=== PATIENT | female | born 1945 | race Caucasian/White ===

== ENCOUNTER → 2023-05-19 12:32 | Outpatient (POV) | payer MEDICARE, MEDICAID, SELFPAY ==
--- NOTE | 2023-05-19 12:59 | A.OFFVIS_ITS ---
HPI Data of Consult Patient: new to practice Consult date: 05/19/23 Requesting Physician: Phyllis Hayes APRN Primary Care Provider: Alyssa Vargas APRN Consult Narrative History of present illness: Ms. Barrera is a 77 year old female who presents today as a new patient. She is a referral from the [facility] location. She was being treated for degenerative disc disease of lumbar spine with lumbar radiculopathy symptoms and sacroiliitis. Patient rates her pain today a 7 out of 10. Patient denies any new trauma or injury. Patient does describe her pain as an aching, throbbing sensation that is in and around her right hip with some numbness and tingling. She states that this pain has been going on for several months and progressively worsened over time. Patient states that it does affect her ability perform activities of daily living such as cooking and cleaning. Patient states that it does seem very aggravated with prolonged positioning such as sitting or standing. Patient states that it does affect her quality of life and that she was really hoping to get another injection. Her last time at the clinic there in [place] they had submitted for an SI injection however was denied. Patient has not had this injection prior. Patient was started on gabapentin while she was there in [place] however she was unable to tolerate this medicine due to increased grogginess and did actually have a fall due to this medication. Patient does use [id number] Tylenol and ibuprofen along with heat and ice and topicals however only has minimal relief. Patient has been going to physical therapy and is still currently going twice a week however she has not had any additional relief. Patient denies any previous back surgery. Patient does states she has recently had MRI and x-ray imaging at [facility]. Patient states that this is the only place she can do this imaging because she has a coil in her brain. Patient is interested in any help we may be able to provide. Patient was prescribed gabapentin and [place] in the past. Her Jesus has been reviewed and is appropriate. CC: Phyllis Hayes APRN [facility] Disclaimer: The information contained in this section may have been updated after the patient was seen, as this information can be updated by other users. Medical History (Updated 05/19/23 @ 14:22 by Che Whitley RN) Brain aneurysm CAD (coronary artery disease) Depression HLD (hyperlipidemia) HTN (hypertension) Family History (Updated 05/19/23 @ 14:21 by Che Whitley RN) Other Unknown family medical history Social History (Updated 05/19/23 @ 14:23 by Che Whitley RN) Smoking Status: Unknown if ever smoked alcohol intake: never current occupational status: other Travel in the last 8 weeks: None Review of Systems Review of Systems Review of systems:: pertinent systems reviewed and negative unless documented below Review of systems (narrative): Review of Systems: General: No recent weight changes, no fever, no sleep disturbances Respiratory: No cough, no shortness of air, no recurring pulmonary infections Cardiovascular/peripheral vascular: No chest pain, no palpitations, no edema, no shortness of breath Gastrointestinal: No new onset incontinence, normal bowel movements reported Genitourinary: No new onset incontinence Musculoskeletal: Low back pain, right hip pain Psychiatric: [Normal mood/affect] Neurological: [Denies weakness in extremities], [denies balance issues] Meds Home Medications and Allergies Home Medications Medication Instructions Recorded Confirmed Type atorvastatin 80 mg tablet 80 mg PO DAILY Cholesterol 05/19/23 05/19/23 History citalopram 20 mg tablet 20 mg PO DAILY MOOD 05/19/23 05/19/23 History clopidogrel 75 mg tablet 75 mg PO DAILY Blood Thinner 05/19/23 05/19/23 History fluticasone fur. 100 mcg-umeclid 1 inh inhalation DIRECTED 05/19/23 05/19/23 History 62.5 mcg-vilant 25 mcg Breathing Problems inhalat.powder (Trelegy Ellipta) furosemide 20 mg tablet 20 mg PO DAILY Fluid 05/19/23 05/19/23 History ipratropium 20 mcg-albuterol 100 1 puff inhalation DIRECTED 05/19/23 05/19/23 History mcg/actuation mist for inhalation Breathing Problems (Combivent Respimat) losartan 50 mg tablet 50 mg PO DAILY BLOOD PRESSURE 05/19/23 05/19/23 History metoprolol succinate 25 mg 25 mg PO DAILY BLOOD PRESSURE 05/19/23 05/19/23 History tablet,extended release 24 hr mirtazapine 30 mg tablet 30 mg PO DIRECTED . 05/19/23 05/19/23 History montelukast 10 mg tablet 10 mg PO DIRECTED ALLERGIES 05/19/23 05/19/23 History omeprazole 20 mg capsule,delayed 20 mg PO DAILY GERD 05/19/23 05/19/23 History release New Prescriptions to Start Prescriptions: Allergies Allergy/AdvReac Type Severity Reaction Status Date / Time No Known Allergies Allergy Verified 05/19/23 14:29 Objective Narrative: Physical Exam: General: Alert and oriented x3, no acute distress, pleasant and cooperative Lungs: Respirations even and unlabored, symmetrical chest expansion Eyes: PERRL Musculoskeletal: Flexion and extension of lumbar [spine] somewhat guarded secondary to pain, [antalgic gait noted] extreme point tenderness along right SI with a positive right Carmelo's, Shantanu's, Gaenslen's, compression and distraction exam Neurological: Speech clear, no gross sensory deficit Additional findings Additional findings: [facility] MRI lumbar spine without contrast 01/05/2023 Findings: T12-L2: Normal L2-3: Broad-based disc bulge with posterior disc osteophyte causing moderate ventral canal flattening without significant neural compression. Inferior foraminal narrowing without intraforaminal L2 nerve root compression L3-4: Moderate disc space loss with posterior disc osteophyte. Left more than right disc osteophyte protrusion as well as left facet subluxation and facet arthropathy on imaging 19/7. Nerve root impingement but no compression as on sagittal image 13/4. No central stenosis. L4-5: Marked right greater than left loss of disc height, with reactive changes, more present on the right. A large right-sided osteophyte is seen on image 8/4 in the setting of the facet arthropathy and with apparent impingement/compression of the exiting intraforaminal right L4 nerve root as for example on image 7/4. There is also ventral lateral recess narrowing, right greater than left with minor displacement of right L5 nerve root on axial image 23/7. Minor right greater than left facet arthropathy L5-S1: Marked disc space narrowing with bilateral facet arthropathy and impingement but not compression on the exiting S1 nerve roots on image 27/7. Foraminal narrowing but no compression of the exiting intraforaminal L5 nerve root. Assessment and Plan *Assessment and plan (1) Low back pain: Status: Acute Qualifiers: Back pain laterality: bilateral Chronicity: chronic Sciatica laterality: sciatica of right side Sciatica presence: with sciatica Qualified Code(s): M54.41 - Lumbago with sciatica, right side; G89.29 - Other chronic pain Category: Medical Code(s): M54.50 - Low back pain, unspecified (2) Chronic pain syndrome: Status: Acute Category: Medical Code(s): G89.4 - Chronic pain syndrome (3) Sacroiliitis: Status: Acute Category: Medical Code(s): M46.1 - Sacroiliitis, not elsewhere classified Plan Patient is experiencing significant pain in her low back along her right hip. Patient had extreme point tenderness at her SI joint and a positive right Carmelo's, Shantanu's, Gaenslen's, compression and distraction exam during today's visit. I have discussed that with the patient that she may benefit from a right SI injection. Risk and benefits were discussed with patient and she would like to proceed forward with this plan of care. Patient has not ever had the SI injection in the past and cannot determine how much percentage improvement she will have from this injection. Patient has only had a lumbar epidural in the past that did provide 75 percent relief. I will order the patient a compounded cream. Patient will be scheduled for a right SI injection under fluoroscopy. Patient has tried and failed conservative therapy such as oral medication, heat and ice, topicals, current physical therapy and at home stretching exercise for longer than 6 weeks. Patient has been dealing with this pain for longer than 6 months. We will also reach out to [facility] and see about getting a copy of the patient's x-ray and lumbar MRI imaging. Patient has been instructed to contact the clinic with any concerns before the next appointment. Dr. Willis has reviewed this note and agrees with this plan of care. This note was dictated using voice recognition software and make contain errors or omissions.
[2023-05-19 13:07] VITALS: BP 130/59; PULSE 87; RESP 18; O2SAT 91; BMI 24.1
== END ==
LOC: SC.PAIN 12:38
PROVIDERS: PCP Nurse Practitioner Family; Visit Provider Nurse Practitioner Family
DX: M54.41 Lumbago with sciatica, right side (principal); G89.4 Chronic pain syndrome; M46.1 Sacroiliitis, not elsewhere classified
CPT/HCPCS: 99202; G0463

== ENCOUNTER 2023-06-14 13:15 | Day surgery (SDC) | payer MEDICARE, MEDICAID, SELFPAY ==
[2023-06-14 13:34] VITALS: BP 123/59; PULSE 79; RESP 18; TEMP 36.9; O2SAT 93; BMI 24.3
[2023-06-14] MEDS: LIDOCAINE 1% 5ML PF VIAL 5 ML (13:47)
[2023-06-14] MEDS: BUPIVACAINE 0.25% 10ML INJ 25 MG IJ (13:47)
[2023-06-14] MEDS: methylPREDNISolone ACETATE 80MG/ML VIAL 80 MG (13:47)
[2023-06-14 13:55] VITALS: BP 117/57; PULSE 83; RESP 18; O2SAT 93
--- NOTE | 2023-06-14 14:25 | EXP.PAIN.PRO ---
Procedure Date: 06/14/23 Time: 14:00 Anesthesiologist:: Royce Hampton CRNA Complications:: None Pre-procedure Diagnosis:: Right sacroiliitis Post-procedure Diagnosis:: Same. Indications for Procedure:: Patient is a very pleasant 78-year-old female comes our clinic today for right sacroiliac joint injection. Patient is wheelchair-bound as well as oxygen dependent. She complains of right low lumbar back pain. Upon examination she has extreme point tenderness over the right sacroiliac joint. She describes the pain is sharp, stabbing when standing. She rates her pain 8/10. Procedure Details:: Procedure: Right sacroliliac joint injection under fluoroscopy Informed consent was obtained and the risk and benefits of the procedure were explained to the patient.~ The patient was taken to the procedure room and noninvasive monitors were placed including noninvasive blood pressure cuff and pulse oximeter.~ The patient was placed prone on the procedure table.~ The~ right hip was cleansed using Betadine as a cleansing solution.~ C-arm fluorosocpy was used to view the right SI joint.~ The skin and subcutaneous tissues were anesthetized using Lidocaine 1.5% and a 25-gauge needle.~ After this, a 22-gauge spinal needle was inserted under fluoroscopic guidance into the inferior aspect of the right SI joint.~ Omnipaque dye was injected and a good spread was seen throughout the joint.~ After this, approximately 5 mL of bupivacaine 0.25% and Depo-Medrol 40 mg was incrementally injected into the sacroiliac joint.~ The patient tolerated the procedure well with no complications.~ The patient was observed in the Pain Clinic, then discharged home neurologically intact.~ Plan and Disposition:: Patient was discharged without incident.
== END 2023-06-14 13:55 | disposition home or self-care (01) ==
LOC: SC.PAINP 13:17
PROVIDERS: Visit Provider Nurse Anesthetist, Certified Registered
DX: M46.1 Sacroiliitis, not elsewhere classified (principal)
CPT/HCPCS: 27096; 77002; G0260; J1040

== ENCOUNTER 2023-07-07 12:48 | Outpatient (POV) | payer MEDICARE, MEDICAID, SELFPAY ==
[2023-07-07 12:51] VITALS: BP 127/83; PULSE 85; RESP 18; O2SAT 91; BMI 24.3
--- NOTE | 2023-07-07 14:05 | EXP.PAIN.SOA ---
[facility] Pain Management SOAP Note Subjective:: Patient is a pleasant 78-year-old female who presents today for follow-up of right SI injection on 06/14/2023. Today she rates her pain a 0 while sitting however when she gets up and starts moving around it will go to a 5 or 6 out of 10. Patient states that she had at least 95% relief following this injection lasting for approximately 1 week. Patient does state that it did slowly start to return to her baseline after that. She states during the initial time that it was working she was able to increase her activity and felt overall more functional. Patient does state today that it is still not at the severity of what it was initially and that she has been able to increase her activity and doing about 400 steps per day however it does interfere with her ability to perform activities of daily living such as cooking and cleaning. Patient states that she can only be standing for short periods of time before she has to stop and sit down. Patient does have to occasionally change positions due to the worsening pain. Patient does state it also takes it out of her anytime that she has to travel due to the worsening pain symptoms. Patient is interested in repeating her last injection. Patient does have a history of heart related issues with stents placed and cannot do NSAIDs on a regular basis. Patient does state that she will occasionally use 2 Tylenol and the low-dose ibuprofen as needed. Patient was prescribed compounded cream at her last office visit and states she did not notice significant relief. Her Jesus has been reviewed and is appropriate. Review of Systems: General: No recent weight changes, no fever, no sleep disturbances Respiratory: No cough, no shortness of air, no recurring pulmonary infections Cardiovascular/peripheral vascular: No chest pain, no palpitations, no edema, no shortness of breath Gastrointestinal: No new onset incontinence, normal bowel movements reported Genitourinary: No new onset incontinence Musculoskeletal: Low back pain: Right hip pain Psychiatric: [Normal mood/affect] Neurological: [Denies weakness in extremities], [denies balance issues] Objective:: Physical Exam: General: Alert and oriented x3, no acute distress, pleasant and cooperative Lungs: Respirations even and unlabored, symmetrical chest expansion Eyes: PERRL Musculoskeletal: Flexion and extension of lumbar [spine] somewhat guarded secondary to pain, [antalgic gait noted] point tenderness along right SI with positive right Carmelo's, Shantanu's, Gaenslen's, compression and distraction exam Neurological: Speech clear, no gross sensory deficit Assessment:: Degenerative disc disease of lumbar spine with lumbar radiculopathy symptoms, right sacroiliitis, right hip pain Plan:: Patient is experiencing significant pain in her low back and right hip with limited range of motion of her lumbar spine. Patient did have approximately 95% relief with her last SI injection. I have discussed with the patient that she may benefit from repeat injection. Risk and benefits were discussed with patient and she would like to proceed forward with this plan of care. I have also discussed with patient in future she may benefit from lumbar medial branch block for lumbar epidural if her symptoms start to cause radiating pain into her legs. We will follow-up with this at future visits. Patient has tried and failed conservative therapy such as oral medication, heat and ice, topicals, at home stretching exercise for longer than 6 weeks. Patient is on full-time continuous oxygen and cannot tolerate current physical therapy. We will submit to insurance for a right SI injection under fluoroscopy. Patient has been instructed to contact the clinic with any concerns before the next appointment. Dr. Willis has reviewed this note and agrees with this plan of care. This note was dictated using voice recognition software and make contain errors or omissions. [facility] Disclaimer: The information contained in this section may have been updated after the patient was seen, as this information can be updated by other users. Medical History Brain aneurysm Depression CAD (coronary artery disease) HLD (hyperlipidemia) HTN (hypertension) Family History Other Unknown family medical history Social History Smoking Status: Unknown if ever smoked alcohol intake: never current occupational status: other Travel in the last 8 weeks: None
== END 2023-07-07 23:59 ==
LOC: SC.PAIN 12:49
PROVIDERS: PCP Nurse Practitioner Family; Visit Provider Nurse Practitioner Family
DX: M51.16 Intervertebral disc disorders with radiculopathy, lumbar region (principal); M46.1 Sacroiliitis, not elsewhere classified; M25.551 Pain in right hip
CPT/HCPCS: 99212; G0463

== ENCOUNTER 2023-07-26 12:35 | Day surgery (SDC) | payer MEDICARE, MEDICAID, SELFPAY ==
[2023-07-26 13:03] VITALS: BP 113/57; PULSE 83; RESP 18; TEMP 36.2; O2SAT 91; BMI 24.3
[2023-07-26] MEDS: LIDOCAINE 1% 5ML PF VIAL 5 ML (13:08)
[2023-07-26] MEDS: methylPREDNISolone ACETATE 80MG/ML VIAL 80 MG (13:08)
[2023-07-26] MEDS: BUPIVACAINE 0.25% 10ML INJ 25 MG IJ (13:08)
[2023-07-26 13:11] VITALS: BP 140/57; PULSE 89; RESP 18; TEMP 36.8; O2SAT 98
--- NOTE | 2023-07-26 13:11 | EXP.PAIN.PRO ---
Procedure Date: 07/26/23 Time: 12:50 Anesthesiologist:: Royce Hampton CRNA Complications:: None Pre-procedure Diagnosis:: Right sacroiliitis Post-procedure Diagnosis:: Same Indications for Procedure:: Patient is a pleasant 78-year-old female comes to clinic today for right sacroiliac joint injection of cortisone. Patient reports 1 week of significant improvement terms of her overall right low lumbar back pain as well as right posterior hip pain after receiving her first sacroiliac joint injection on 06/14/2023. Patient reports of right low lumbar back pain as well as right buttock pain. She reports pain intensifies with sitting. Patient reports having difficulty transitioning from sitting to standing due to the right posterior hip pain. Procedure Details:: Procedure: Right sacroliliac joint injection under fluoroscopy Informed consent was obtained and the risk and benefits of the procedure were explained to the patient.~ The patient was taken to the procedure room and noninvasive monitors were placed including noninvasive blood pressure cuff and pulse oximeter.~ The patient was placed prone on the procedure table.~ The~ right hip was cleansed using Betadine as a cleansing solution.~ C-arm fluorosocpy was used to view the right SI joint.~ The skin and subcutaneous tissues were anesthetized using Lidocaine 1.5% and a 25-gauge needle.~ After this, a 22-gauge spinal needle was inserted under fluoroscopic guidance into the inferior aspect of the right SI joint.~ Omnipaque dye was injected and a good spread was seen throughout the joint.~ After this, approximately 5 mL of bupivacaine 0.25% and Depo-Medrol 40 mg was incrementally injected into the sacroiliac joint.~ The patient tolerated the procedure well with no complications.~ The patient was observed in the Pain Clinic, then discharged home neurologically intact.~ Plan and Disposition:: Patient was discharged without incident.
--- NOTE | 2023-07-26 13:54 | EXP.PAIN.PRO ---
Procedure Date: 07/26/23 Time: 13:15 Anesthesiologist:: Royce Hampton CRNA Complications:: None Pre-procedure Diagnosis:: Degenerative disc lumbar spine multilevels. Lumbar radiculopathy. Post-procedure Diagnosis:: Same. Indications for Procedure:: Patient is a 78-year-old female comes our clinic today for intrathecal pain pump interrogation and refill. However, upon talking with the patient she is interested in the pump being explanted. She is not satisfied with the pain relief. Also, patient is reporting multiple side effects such as low back pain. Swelling. Right knee pain. Patient currently being managed with morphine sulfate 5 mg/mL at a rate of 0.2500 mg/day. I explained to the patient the details of weaning the medication down prior to explant. Today we will decrease her by 20%. Her new rate will be 0.2 mg/day. She will return to the office in 2 weeks for a second decrease of 20%. We will add her to the schedule after that visit for surgical explant of the pump. Patient asked regarding other options in terms of the pump. I discussed at length bupivacaine versus narcotic. Patient reports she is not interested. I explained in detail the patient we will not write oral narcotics for her. Patient states she is allergic to oral narcotics anyway. I discussed surgical consultation for potential lumbar surgery. She is not interested. Procedure Details:: Details of the procedure explained to the patient. The patient's pump was interrogated. Patient currently being managed with morphine sulfate 5 mg/mL at 0.2500 mg/day. Will decrease the pump by 20%. The patient's new rate will be 0.200. Patient tolerated procedure without difficulty. There are no complications. Plan and Disposition:: Patient will return to the office in 2 weeks for another 20% decrease in the intrathecal pain pump rate. We will schedule her at that time for explant of the intrathecal pain pump.
--- NOTE | 2023-07-26 14:04 | EXP.PAIN.PRO ---
Procedure Date: 07/26/23 Time: 13:48 Anesthesiologist:: Royce Hampton CRNA Complications:: None Pre-procedure Diagnosis:: Degenerative disc lumbar spine multilevels. Lumbar radiculopathy. Post-procedure Diagnosis:: Same. Indications for Procedure:: Patient is a pleasant 78-year-old female comes our clinic
== END 2023-07-26 13:11 | disposition home or self-care (01) ==
PROVIDERS: PCP Nurse Practitioner Family; Visit Provider Nurse Anesthetist, Certified Registered
DX: M46.1 Sacroiliitis, not elsewhere classified (principal); M51.16 Intervertebral disc disorders with radiculopathy, lumbar region; Z97.8 Presence of other specified devices; Z45.1 Encounter for adjustment and management of infusion pump
CPT/HCPCS: 27096; 62368; G0260; J1010

== ENCOUNTER 2023-08-18 13:12 | Outpatient (POV) | payer MEDICARE, MEDICAID, SELFPAY ==
[2023-08-18 13:26] VITALS: BP 108/68; PULSE 84; RESP 16; O2SAT 93; BMI 24.3
--- NOTE | 2023-08-18 15:36 | EXP.PAIN.SOA ---
[facility] Pain Management SOAP Note Subjective:: Patient is a pleasant 78-year-old female who presents today for follow-up. Today she rates her pain a 2 of 10. P patient does state that she feels like her last SI injection has worked really well. She states that she got at least 80% improvement leading up until earlier this week. She states she was feeling much better and was doing things around the house and ended up overstretching and feeling a pull in her low back along the right side. Patient does state however that it is still not as severe as what it had been and right now it is still manageable. Patient does have a history of heart related issues with stents placed and cannot do NSAIDs on a regular basis. Patient does state that she will occasionally use 2 Tylenol and the low-dose ibuprofen as needed. Patient was prescribed compounded cream at her last office visit and states she did not notice significant relief. Patient is currently managed with intrathecal morphine 5 mg/mL with a daily dose of 0.2 mg/day. She denies any side effects from this medication. Her Jesus has been reviewed and is appropriate. Review of Systems: General: No recent weight changes, no fever, no sleep disturbances Respiratory: No cough, no shortness of air, no recurring pulmonary infections Cardiovascular/peripheral vascular: No chest pain, no palpitations, no edema, no shortness of breath Gastrointestinal: No new onset incontinence, normal bowel movements reported Genitourinary: No new onset incontinence Musculoskeletal: Low back pain: Right hip pain Psychiatric: [Normal mood/affect] Neurological: [Denies weakness in extremities], [denies balance issues] Objective:: Physical Exam: General: Alert and oriented x3, no acute distress, pleasant and cooperative Lungs: Respirations even and unlabored, symmetrical chest expansion Eyes: PERRL Musculoskeletal: Flexion and extension of lumbar [spine] somewhat guarded secondary to pain, [antalgic gait noted] Neurological: Speech clear, no gross sensory deficit Assessment:: Degenerative disc disease of lumbar spine with lumbar radiculopathy symptoms, right-sided sacroiliitis Plan:: Patient is doing well overall currently between her pump and SI injections. We will follow-up with her in 2 months for reevaluation of symptoms and plan of care. Patient has been instructed to contact the clinic with any concerns before the next appointment. Dr. Willis has reviewed this note and agrees with this plan of care. This note was dictated using voice recognition software and make contain errors or omissions. -- It Is medically necessary for this patient to continue to have their intrathecal pump refilled at regular intervals. This patient had an intrathecal pain pump implanted after meeting criteria of chronic intractable pain for greater than 3 months and failing conservative treatments. Patient has committed and been compliant to the treatment plan and all planned follow up care. Since implantation of the intrathecal pain pump, the patient has had decreased pain and been more functional. Oral medications have been reduced including intake of oral opioids. Patient continues to do well with intrathecal therapy with decrease in pain symptoms and increase in functional status. Stopping intrathecal medications can lead to life threatening withdrawal, seizures, cardiac arrest, severe pain, and possible . Pumps that are not refilled at regular intervals can be damages and cause and need for replacement. We continually titrate dose and concentration to optimize pain relief and function. We are limited in concentration for certain drugs to safely deliver medications through the pump and stay within the recommendations from the Polyanalgesic Consensus Committee Guidelines. Depending on dose and concentration these pumps may need to be refilled sooner than 3 months as we titrate. [facility] Disclaimer: The information contained in this section may have been updated after the patient was seen, as this information can be updated by other users. Medical History Brain aneurysm Depression CAD (coronary artery disease) HLD (hyperlipidemia) HTN (hypertension) Family History Other Unknown family medical history Social History Smoking Status: Unknown if ever smoked alcohol intake: never current occupational status: other Travel in the last 8 weeks: None
== END 2023-08-18 23:59 | disposition home or self-care (01) ==
LOC: SC.PAIN 13:14
PROVIDERS: PCP Nurse Practitioner Family; Visit Provider Nurse Practitioner Family
DX: M51.16 Intervertebral disc disorders with radiculopathy, lumbar region (principal); M46.1 Sacroiliitis, not elsewhere classified; Z97.8 Presence of other specified devices
CPT/HCPCS: 99212; G0463

== ENCOUNTER 2023-11-17 10:27 | Outpatient (POV) | payer MEDICARE, MEDICAID, SELFPAY ==
--- NOTE | 2023-11-17 11:02 | EXP.PAIN.SOA ---
[facility] Disclaimer: The information contained in this section may have been updated after the patient was seen, as this information can be updated by other users. Medical History Brain aneurysm Depression CAD (coronary artery disease) HLD (hyperlipidemia) HTN (hypertension) Family History Other Unknown family medical history Social History Smoking Status: Unknown if ever smoked alcohol intake: never current occupational status: other Travel in the last 8 weeks: None PM Subjective & Objective Subjective Subjective:: Patient is a pleasant 78-year-old female who presents today for follow-up. Today she rates her pain a 7 out of 10. She denies any new trauma or injury. She does state that she continues to have pain all along the right side of her low back and goes into her right hip. Patient does state that the pain is back to being constant and an aching throbbing sensation that is worse with increased activity. She does state the pain interferes with her ability to perform activities of daily living. Patient did previously have a right SI injection back in June that did provide 80% relief. She does state that she is interested in this option today. Her Jesus has been reviewed and is appropriate. Review of Systems: General: No recent weight changes, no fever, no sleep disturbances Respiratory: No cough, no shortness of air, no recurring pulmonary infections Cardiovascular/peripheral vascular: No chest pain, no palpitations, no edema, no shortness of breath Gastrointestinal: No new onset incontinence, normal bowel movements reported Genitourinary: No new onset incontinence Musculoskeletal: Low back pain, right hip pain Psychiatric: [Normal mood/affect] Neurological: [Denies weakness in extremities], [denies balance issues] Pain at rest (0-10 scale): 7 Objective Objective:: Physical Exam: General: Alert and oriented x3, no acute distress, pleasant and cooperative Lungs: Respirations even and unlabored, symmetrical chest expansion Eyes: PERRL Musculoskeletal: Flexion and extension of lumbar [spine] somewhat guarded secondary to pain, [antalgic gait noted] point tenderness along right SI with positive right Carmelo's, Shantanu's, Gaenslen's, compression and distraction exam Neurological: Speech clear, no gross sensory deficit Has patient had previous pain injection?: No Conservative treatment options previously tried: Home exercise plan Length of treatment: Longer than 6 weeks Meds Home Medications and Allergies Home Medications ?Medication ?Instructions ?Recorded ?Confirmed ?Type atorvastatin 80 mg tablet 80 mg PO DAILY Cholesterol 05/19/23 08/18/23 History citalopram 20 mg tablet 20 mg PO DAILY MOOD 05/19/23 08/18/23 History clopidogrel 75 mg tablet 75 mg PO DAILY Blood Thinner 05/19/23 08/18/23 History fluticasone fur. 100 mcg-umeclid 1 inh inhalation DIRECTED 05/19/23 08/18/23 History 62.5 mcg-vilant 25 mcg Breathing Problems inhalat.powder (Trelegy Ellipta) furosemide 20 mg tablet 20 mg PO DAILY Fluid 05/19/23 08/18/23 History ipratropium 20 mcg-albuterol 100 1 puff inhalation DIRECTED 05/19/23 08/18/23 History mcg/actuation mist for inhalation Breathing Problems (Combivent Respimat) losartan 50 mg tablet 50 mg PO DAILY BLOOD PRESSURE 05/19/23 08/18/23 History metoprolol succinate 25 mg 25 mg PO DAILY BLOOD PRESSURE 05/19/23 08/18/23 History tablet,extended release 24 hr mirtazapine 30 mg tablet 30 mg PO DIRECTED . 05/19/23 08/18/23 History montelukast 10 mg tablet 10 mg PO DIRECTED ALLERGIES 05/19/23 08/18/23 History omeprazole 20 mg capsule,delayed 20 mg PO DAILY GERD 05/19/23 08/18/23 History release New Prescriptions to Start Prescriptions: Allergies Allergy/AdvReac Type Severity Reaction Status Date / Time No Known Allergies Allergy Verified 07/26/23 13:08 Assessment and Plan *Assessment and plan (1) Chronic pain syndrome: Status: Acute Category: Medical Code(s): G89.4 - Chronic pain syndrome (2) Sacroiliitis: Status: Acute Category: Medical Code(s): M46.1 - Sacroiliitis, not elsewhere classified (3) Low back pain: Status: Acute Qualifiers: Chronicity: chronic Back pain laterality: bilateral Sciatica presence: with sciatica Sciatica laterality: sciatica of right side Qualified Code(s): M54.41 - Lumbago with sciatica, right side; G89.29 - Other chronic pain Category: Medical Code(s): M54.50 - Low back pain, unspecified Plan Patient is experiencing worsening pain throughout her low back and right hip. Patient did have point tenderness along her right SI and a positive right Carmelo's, Shantanu's, Gaenslen's, compression and distraction exam. I did discuss with the patient that she may benefit from a repeat right SI injection. Risk and benefits were discussed with patient and she would like to proceed forward with this plan of care. Patient did have a right SI injection back in June that did provide 80% improvement and did give her overall improved function. Patient will be submitted for a repeat right SI injection under fluoroscopy. Patient has been instructed to contact the clinic with any concerns before the next appointment. Dr. Willis has reviewed this note and agrees with this plan of care. This note was dictated using voice recognition software and make contain errors or omissions. All injections are used with Lidocaine or Bupivacaine and Depo Medrol.
[2023-11-17 11:51] VITALS: BP 140/61; PULSE 92; RESP 16; O2SAT 92; BMI 24.3
== END 2023-11-17 23:59 | disposition home or self-care (01) ==
LOC: SC.PAIN 10:28
PROVIDERS: PCP Nurse Practitioner Family; Visit Provider Nurse Practitioner Family
DX: G89.4 Chronic pain syndrome (principal); M46.1 Sacroiliitis, not elsewhere classified; M54.41 Lumbago with sciatica, right side; Z73.89 Other problems related to life management difficulty; Z79.899 Other long term (current) drug therapy
CPT/HCPCS: 99212; G0463

== ENCOUNTER → 2024-01-03 13:08 | Day surgery (SDC) | payer MEDICARE, MEDICAID, SELFPAY ==
[2024-01-03 13:31] VITALS: BP 128/54; BP 128/64; BP 143/56; PULSE 80; PULSE 83; PULSE 86; RESP 16; RESP 18; O2SAT 87; O2SAT 91; BMI 25.5
[2024-01-03] MEDS: BUPIVACAINE 0.25% 10ML INJ 25 MG IJ (13:31)
[2024-01-03] MEDS: methylPREDNISolone ACETATE 80MG/ML VIAL 80 MG (13:32)
[2024-01-03] MEDS: LIDOCAINE 1% 5ML PF VIAL 5 ML (13:32)
--- NOTE | 2024-01-03 13:32 | EXP.PAIN.PRO ---
Procedure Date: 01/03/24 Time: 13:30 Anesthesiologist:: Royce Hampton CRNA Complications:: None Pre-procedure Diagnosis:: Right sacroiliitis Post-procedure Diagnosis:: Same Indications for Procedure:: Patient is a pleasant 78-year-old female comes her clinic today for right sacroiliac joint injection of cortisone and local anesthetic. Patient scribes low lumbar back pain off the midline to the right. Right posterior hip pain. She rates her pain 7/10. Patient reports having difficulty transitioning from sitting to standing. Difficulty with ambulation due to the right posterior hip pain. Procedure Details:: Procedure: Right sacroliliac joint injection under fluoroscopy Informed consent was obtained and the risk and benefits of the procedure were explained to the patient.~ The patient was taken to the procedure room and noninvasive monitors were placed including noninvasive blood pressure cuff and pulse oximeter.~ The patient was placed prone on the procedure table.~ The~ right hip was cleansed using Betadine as a cleansing solution.~ C-arm fluorosocpy was used to view the right SI joint.~ The skin and subcutaneous tissues were anesthetized using Lidocaine 1.5% and a 25-gauge needle.~ After this, a 22-gauge spinal needle was inserted under fluoroscopic guidance into the inferior aspect of the right SI joint.~ Omnipaque dye was injected and a good spread was seen throughout the joint.~ After this, approximately 5 mL of bupivacaine 0.25% and Depo-Medrol 40 mg was incrementally injected into the sacroiliac joint.~ The patient tolerated the procedure well with no complications.~ The patient was observed in the Pain Clinic, then discharged home neurologically intact.~ Plan and Disposition:: Patient was discharged without incident.
--- NOTE | 2024-01-03 13:57 | PC.NURSE ---
Pt O2 sats were at 87% when she left. She advised she did not feel SOA and had just went to the bathroom which required her to move around a lot and that would cause her sats to drop. Advised that her portable machine was also not as forceful as her regular O2. Pt advised she felt fine and normal and was ready to leave and that her sats were 90% normally. Pt left at this time with her .
== END | disposition home or self-care (01) ==
PROVIDERS: PCP Nurse Practitioner Family; Visit Provider Nurse Anesthetist, Certified Registered
DX: M46.1 Sacroiliitis, not elsewhere classified (principal)
CPT/HCPCS: 27096; G0260; J1010

== ENCOUNTER 2024-01-26 12:45 | Outpatient (POV) | payer MEDICARE, MEDICAID, SELFPAY ==
[2024-01-26 14:00] VITALS: BP 111/59; PULSE 85; RESP 16; O2SAT 85; BMI 24.3
--- NOTE | 2024-01-26 15:02 | EXP.PAIN.SOA ---
[facility] Disclaimer: The information contained in this section may have been updated after the patient was seen, as this information can be updated by other users. Medical History (Updated 01/26/24 @ 15:05 by Phyllis Hayes APRN) Brain aneurysm Depression CAD (coronary artery disease) HLD (hyperlipidemia) HTN (hypertension) Family History Other Unknown family medical history Social History Smoking Status: Unknown if ever smoked alcohol intake: never current occupational status: other Travel in the last 8 weeks: None PM Subjective & Objective Subjective Subjective:: Patient is a pleasant 78-year-old female who presents today for follow-up of right SI injection on 01/03/2024. Today she rates her pain a 5 out of 10. She does state that she did not notice significant improvement with this injection. Patient did previously have a right SI injection in June that did provide 80% relief and lasted 3 months. Patient states that this just did not seem to work as well other than while it was numb. Patient does state that she has been having more pain across her low back and will occasionally have numbness and tingling that radiates all the way down her right leg to her foot. Patient does state the pain is fairly constant and does interfere with her ability to perform activities of daily living such as cooking and cleaning. Patient does states she is interested in other options due to the worsening pain. Patient has tried and failed conservative treatment and is on continuous O2 and cannot tolerate current physical therapy. Her Jesus has been reviewed and is appropriate. Review of Systems: General: No recent weight changes, no fever, no sleep disturbances Respiratory: No cough, no shortness of air, no recurring pulmonary infections Cardiovascular/peripheral vascular: No chest pain, no palpitations, no edema, no shortness of breath Gastrointestinal: No new onset incontinence, normal bowel movements reported Genitourinary: No new onset incontinence Musculoskeletal: Low back pain, right leg numbness Psychiatric: [Normal mood/affect] Neurological: [Denies weakness in extremities], [denies balance issues] Pain at rest (0-10 scale): 5 Objective Objective:: Physical Exam: General: Alert and oriented x3, no acute distress, pleasant and cooperative Lungs: Respirations even and unlabored, symmetrical chest expansion Eyes: PERRL Musculoskeletal: Flexion and extension of lumbar [spine] somewhat guarded secondary to pain, [antalgic gait noted] Neurological: Speech clear, no gross sensory deficit Has patient had previous pain injection?: Yes Percent improvement in pain since last injection: Only lasting 3 to 4 hours Conservative treatment options previously tried: Home exercise plan Length of treatment: Longer than 12 weeks Meds Home Medications and Allergies Home Medications ?Medication ?Instructions ?Recorded ?Confirmed ?Type atorvastatin 80 mg tablet 80 mg PO DAILY Cholesterol 05/19/23 01/26/24 History citalopram 20 mg tablet 20 mg PO DAILY MOOD 05/19/23 01/26/24 History clopidogrel 75 mg tablet 75 mg PO DAILY Blood Thinner 05/19/23 01/26/24 History fluticasone fur. 100 mcg-umeclid 1 inh inhalation DIRECTED 05/19/23 01/26/24 History 62.5 mcg-vilant 25 mcg Breathing Problems inhalat.powder (Trelegy Ellipta) furosemide 20 mg tablet 20 mg PO DAILY Fluid 05/19/23 01/26/24 History ipratropium 20 mcg-albuterol 100 1 puff inhalation DIRECTED 05/19/23 01/26/24 History mcg/actuation mist for inhalation Breathing Problems (Combivent Respimat) losartan 50 mg tablet 50 mg PO DAILY BLOOD PRESSURE 05/19/23 01/26/24 History metoprolol succinate 25 mg 25 mg PO DAILY BLOOD PRESSURE 05/19/23 01/26/24 History tablet,extended release 24 hr mirtazapine 30 mg tablet 30 mg PO DIRECTED . 05/19/23 01/26/24 History montelukast 10 mg tablet 10 mg PO DIRECTED ALLERGIES 05/19/23 01/26/24 History omeprazole 20 mg capsule,delayed 20 mg PO DAILY GERD 05/19/23 01/26/24 History release New Prescriptions to Start Prescriptions: Allergies Allergy/AdvReac Type Severity Reaction Status Date / Time No Known Allergies Allergy Verified 07/26/23 13:08 Assessment and Plan *Assessment and plan (1) Chronic pain syndrome: Status: Acute Category: Medical Code(s): G89.4 - Chronic pain syndrome (2) Low back pain: Status: Acute Qualifiers: Chronicity: chronic Back pain laterality: bilateral Sciatica presence: with sciatica Sciatica laterality: sciatica of right side Qualified Code(s): M54.41 - Lumbago with sciatica, right side; G89.29 - Other chronic pain Category: Medical Code(s): M54.50 - Low back pain, unspecified (3) Lumbar radiculopathy: Status: Acute Category: Medical Code(s): M54.16 - Radiculopathy, lumbar region Plan Patient is experiencing worsening pain in her low back with numbness that does go down her entire right leg however is not constant. Patient was counseled that she may benefit from a lumbar epidural steroid injection. Risk and benefits were discussed with the patient and she would like to proceed forward with this plan of care. Patient has not had any epidurals in our office in the past. 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 She was counseled that we will reach out to this office and confirm she can stop this medication prior to this injection. Patient was also counseled due to them traveling from [place] that we can plan on doing her 2-week follow-up from this injection via telehealth appointment. Patient does have significant difficulty in driving over here due to the worsening pain and continuous oxygen requirements. Patient has tried and failed conservative therapy including continued at home stretching exercise for longer than 12 weeks. Patient is not a candidate for current physical therapy due to her respiratory issues and continuous O2. Patient will be scheduled for an LESI L4-L5 under fluoroscopy. Patient has been instructed to contact the clinic with any concerns before the next appointment. Dr. Willis has reviewed this note and agrees with this plan of care. This note was dictated using voice recognition software and make contain errors or omissions. All injections are used with Lidocaine or Bupivacaine and Depo Medrol.
== END 2024-01-26 23:59 | disposition home or self-care (01) ==
LOC: SC.PAIN 12:46
PROVIDERS: PCP Nurse Practitioner Family; Visit Provider Nurse Practitioner Family
DX: G89.4 Chronic pain syndrome (principal); M54.41 Lumbago with sciatica, right side; M54.16 Radiculopathy, lumbar region; Z73.89 Other problems related to life management difficulty; Z79.02 Long term (current) use of antithrombotics/antiplatelets
CPT/HCPCS: 99212; G0463

== ENCOUNTER 2024-03-27 12:50 | Day surgery (SDC) | payer MEDICARE, MEDICAID, SELFPAY ==
[2024-03-27 13:04] VITALS: BP 152/76; PULSE 89; RESP 16; TEMP 37.3; O2SAT 93; BMI 24.3
[2024-03-27 13:34] VITALS: BP 148/83; PULSE 86; RESP 16; TEMP 36.7; O2SAT 94
--- NOTE | 2024-03-27 13:40 | EXP.PAIN.PRO ---
Procedure Date: 03/27/24 Time: 13:30 Anesthesiologist:: Royce Hampton CRNA Complications:: None Pre-procedure Diagnosis:: Degenerative disc lumbar spine multilevels. Lumbar radiculopathy lumbar spondylosis. Multilevel lumbar facet arthropathy. Lumbar scoliosis. Post-procedure Diagnosis:: Same. Indications for Procedure:: Patient is a pleasant 78-year-old female who comes our clinic today for lumbar epidural steroid injection. Patient describes low lumbar back pain as constant, dull, aching. Patient also reports bilateral hip and leg radicular symptoms at times. Procedure Details:: Procedure: Lumbar epidural steroid injection under fluoroscopy Informed consent was obtained and the risks and benefits of the procedure were explained to the patient. The patient was taken to the procedure room and noninvasive monitors placed, including noninvasive blood pressure cuff and pulse oximeter. The back was viewed using C-arm Fluoroscopy and prepped using Chloraprep as a cleansing solution and the L4-L5 interspace was palpated. Skin and subcutaneous tissues were anesthetized using lidocaine 1.5% and a 25-gauge needle. After this, an 18-gauge Touhy epidural needle was placed into the L4-L5 interspace and advanced using fluoroscopic guidance and loss of resistance to air until the epidural space was encountered. After confirmation of needle placement in the epidural space, with dye, a solution containing normal saline, 3 mL and Depo-Medrol 80 mg were incrementally injected into the lumbar epidural space. The patient tolerated the procedure well with no complications. The patient was observed in the Pain Clinic and then discharged home neurologically intact. Plan and Disposition:: Patient was discharged without incident.
[2024-03-27] MEDS: methylPREDNISolone ACETATE 80MG/ML VIAL 80 MG (14:13)
== END 2024-03-27 13:34 | disposition home or self-care (01) ==
LOC: SC.PAINP 12:52
PROVIDERS: PCP Nurse Practitioner Family; Visit Provider Nurse Anesthetist, Certified Registered
DX: M51.16 Intervertebral disc disorders with radiculopathy, lumbar region (principal); M47.26 Other spondylosis with radiculopathy, lumbar region; M41.86 Other forms of scoliosis, lumbar region
CPT/HCPCS: 62323; J1010